=== PATIENT | male | born 1940 | race Caucasian/White ===

== ENCOUNTER 2016-12-03 08:21 | Inpatient (IN) | payer OTHER ==
--- NOTE | 2016-11-29 13:05 | GHP ---
[f rep st] HISTORY AND PHYSICAL DATE OF ADMISSION: 12/03/2016 HISTORY OF PRESENT ILLNESS: The patient is a 76-year-old male who returns to our office to discuss a left upper lobe mass recently demonstrated on CT scan done at [facility] in October 02. The patient denies any recent shortness of breath, pain or weight loss. He has a history of bas al cell carcinoma of the face, as well as prostate cancer. MEDICATION LIST: Aspirin, Effexor, Flomax, simvastatin. PAST MEDICAL HISTORY: Basal cell carcinoma, depression, history of colon polyps, hyperlipidemia, pro state cancer status post brachytherapy. PAST SURGICAL HISTORY: Cataract surgery, tonsillectomy, total hip arthroplasty. SOCIAL HISTORY: Past smoker. Retired. Lives with his . REVIEW OF SYSTEMS: Please see HPI for pertinent negatives. Patient had a 10-point negative review o f systems. PHYSICAL EXAM: GENERAL: The patient is a pleasant male in no apparent distress. HEAD AND NECK: No rmocephalic, atraumatic. No masses in the neck or elvin clavicular region. CHEST: CTA bilaterally. No masses. HEART: Regular rhythm and rate. ABDOMEN: Soft, nontender. EXTREMITIES: No lower ext remity edema. RADIOLOGY: CT scan: Please see HPI. LABORATORY STUDIES: Include recent normal liver function tests, grossly normal metabolic panel, othe r than a glucose of 111. Normal hematocrit. IMPRESSION: 76-year-old male with left lung mass concerning for malignancy. RECOMMENDATION: Left lung VATS procedure, as well as possible lobectomy was discussed with the patie nt in detail, including risks of great vessel injury, lung injury, prolonged use of chest tubes, infe ction, pneumonia. The patient elects to schedule surgery on 12/03/2016. /[id number]/MODL
[~2016-12-03 08:21] MED LIST: BUPIVACAINE/EPI 0.5% 30 ML SDV ONE; ceFAZolin 2 GM/DEXTROSE 100 ML IV ONE
[2016-12-03] MEDS ORDERED: CEFAZOLIN 2 GM/DEXTROSE/100 ML BAG IV ONE (08:43)
[2016-12-03] MEDS ORDERED: LR 1,000 ML IV ONE (09:14)
[2016-12-03] MEDS ORDERED: LIDOCAINE 1% 5 ML SDV ID PRN (09:14)
[2016-12-03] MEDS ORDERED: MIDAZOLAM 2 MG/2 ML VIAL ONE (09:34)
[2016-12-03] MEDS ORDERED: REMIFENTANIL HCL 1 MG VIAL ONE (09:46)
[2016-12-03] MEDS ORDERED: DEXAMETHASONE 4 MG/ML VIAL ONE ×2 (09:47)
[2016-12-03] MEDS ORDERED: PROPOFOL/EMULSION 500 MG/50 ML BOTTLE IV ONE (09:47)
[2016-12-03] MEDS ORDERED: fentaNYL 100 MCG/2 ML INJ ONE ×3 (09:47→12:57)
[2016-12-03] MEDS ORDERED: ONDANSETRON 4 MG/2 ML VIAL ONE (09:47)
[2016-12-03] MEDS ORDERED: LIDOCAINE 2% 100 MG/5 ML SYR IVP ONE (09:48)
[2016-12-03] MEDS ORDERED: LIDOCAINE 2% JELLY 5 ML TUBE ONE (09:52)
[2016-12-03] MEDS ORDERED: PHENYLEPHRINE HCL 100 MCG/ML SYR ONE ×3 (09:59→11:15)
[2016-12-03] MEDS ORDERED: epHEDrine SULFATE 10 MG/ML SYR ONE ×2 (10:25)
[2016-12-03] MEDS ORDERED: ATROPINE SULFATE 1 MG/ML VIAL ONE (10:29)
[2016-12-03] MEDS ORDERED: PROPOFOL 200 MG/20 ML VIAL ONE (11:56)
[2016-12-03] MEDS ORDERED: SUGAMMADEX SODIUM 200 MG/2 ML VIAL IVP ONE (12:15)
[2016-12-03] MEDS ORDERED: morphINE *ANESTHESIA ONLY* 10 MG/ML VIAL ONE (12:17)
--- NOTE | 2016-12-03 13:21 | DX ---
Chest Two Views December 03, 2016 Indication: Evaluate for incorrect needle count. Findings: On the first film, the patient was intubated and the lateral edge of the chest was cut off so a second film was obtained. The patient has been extubated. There are dual chest tubes in the left chest. Surgical luis alfredo are present over the chest wall. There is some platelike atelectasis in the right lung. There is no evidence of a curvilinear needle. Impression: No evidence of a retained surgical needle. Status post left upper lobectomy with dual ch est tubes and left surgical luis alfredo.
[2016-12-03] MEDS ORDERED: ONDANSETRON 4 MG/2 ML VIAL IVP PRN (14:02)
[2016-12-03] MEDS ORDERED: KETOROLAC 30 MG/1 ML SDV IVP ONE (14:02)
[2016-12-03] MEDS: D5W 1/2 NS W/ 20 KCl/L 1,000 ML IV SCH (14:26)
--- NOTE | 2016-12-03 15:47 | GCON ---
[f rep st] CONSULTATION REASON FOR ADMISSION: Status post resection of a left upper lobe mass. HISTORY OF PRESENT ILLNESS: The patient is a 76-year-old white male with a past medical history incl uding prostate cancer, with history of brachytherapy, hyperlipidemia, depression and basal cell carci noma. He was seen postoperatively after receiving a VATS resection of a left upper lobe mass presuma emiliano for cancer. The patient is immediately postoperative. He states the pain is tolerable, but seem s somewhat restless. He denies any shortness of breath. There is no cough or production of sputum. PAST MEDICAL HISTORY: Significant for hyperlipidemia, depression, skin cancer, prostate cancer. PAST SURGICAL HISTORY: Had brachytherapy, cataract surgery, tonsillectomy, a hip replacement. ALLERGIES: No known allergies to medications. SOCIAL HISTORY: A 60+ pack-year smoker. No significant alcohol use. He is , has good family support. PHYSICAL EXAM: VITAL SIGNS: Blood pressure is 106/52, pulse is 93, respirations are 21, temperature 36.6, oxygen saturation 94% on 3 L. GENERAL: The patient is a 76-year-old white male who is in mil d pain HEENT: Eyes ANA PAULA, EOMI. Throat shows no erythema or tonsillar hypertrophy. NECK: Supple. There is no cervical adenopathy. HEART: Regular rate and rhythm with a 2/6 systolic murmur left rosalba rnal border without radiation. LUNGS: Diminished breath sounds. He has crackles on the left. ABDO MEN: Soft, nontender. Bowel sounds are present in all 4 quadrants. There is no clubbing, cyanosis, or edema. LABORATORY DATA: Laboratories are currently pending. Chest x-ray shows status post left upper lobectomy with 2 chest tubes. IMPRESSION: 1. Lung mass. 2. Status post VATS resection. 3. Tobacco abuse. 4. History of hypertension. 5. History of prostate cancer. 6. Pain, moderately controlled. RECOMMENDATIONS: 1. Continue adequate pain control. 2. DVT and PE prophylaxis. 3. Stress ulcer prophylaxis. 4. Early ambulation. 5. Follow chest tube output closely. /[id number]/MODL
[2016-12-03] MEDS: HYDROmorphONE/DILAUDID 1 MG/ML SYR IVP PRN ×2 (16:29→21:28)
--- NOTE | 2016-12-03 17:04 | POSTOPPROG ---
Post Op Note Date of Operation: 12/03/16 Surgeon: Frederick Bean Rim Roller Setter: keegan Anesthesiologist: stephanie Anesthesia: GET(General Endotracheal) Pre-op Diagnosis: jocelin mass Post-op Diagnosis: bronchoalveolar ca Indication: persistent lung mass in smoker Procedure: vats jocelin wedge bx/ thoracotomy with faheem lobectomy with hilar lymphadenectomy Findings: <3 cm peripheral tumor JOCELIN/ benign appearing nodes Inf/Abcess present in the surg proc area at time of surgery?: No Depth: Organ Space EBL: 50-100 Complications: 0 Drains: Constavac Specimen(s): JOCELIN and lymph nodes
[2016-12-03] MEDS: KETOROLAC 15 MG/1 ML SDV IVP SCH ×2 (18:03→23:43)
--- NOTE | 2016-12-03 19:36 | SOAPPROG ---
SOAP Progress Note Assessment/Plan: Assessment: VS STABLE/ NO AIR LEAK/ MINIMAL DRAINAGE/ PAIN CONTROL OK CXR WELL-EXPANDED Plan: CXR IN AM 12/03/16 19:35 Objective: Vital Signs Temp Pulse Resp BP Pulse Ox 36.6 C 93 16 130/70 H 96 12/03/16 14:47 12/03/16 18:00 12/03/16 18:00 12/03/16 18:00 12/03/16 18:00 12/02/16 12/03/16 12/04/16 05:59 05:59 05:59 Intake Total 3175 Output Total 750 Balance 2425 ICD10 Worksheet Patient Problems: Problems Problem Status Diagnosed Hip arthritis Acute
[2016-12-04] MEDS: HYDROmorphONE/DILAUDID 1 MG/ML SYR IVP PRN ×2 (04:28→21:32)
[2016-12-04 04:40] LABS: % IMMATURE GRANULYOCYTES 0.5 % (0.0-1.1); ABSOLUTE IMMATURE GRANULOCYTES 0.07 10^3/uL (0.00-0.10); ADD DIFF? NO; ADD MORPH? NO; ADD SCAN? NO; ATYPICAL LYMPHOCYTE FLAG 10 (0-99); FRAGMENT RBC FLAG 0 (0-99); HEMATOCRIT 39.6 % (40.0-51.0); LEFT SHIFT FLG 0 (0-99); LIPEMIA HEMOLYSIS FLAG 90 (0-99); MEAN CELL HEMOGLOBIN 33.7 pg (27.9-34.1); MEAN CELL HEMOGLOBIN CONCENTR. 35.4 g/dL (32.4-36.7); MEAN CELL VOLUME 95.2 fL (81.5-99.8); MEAN PLATELET VOLUME 9.3 fL (8.7-11.7); PLATELET CLUMPS FLAG 0 (0-99); PLATELET COUNT 211 10^3/uL (150-400); RED BLOOD CELL COUNT 4.16 10^6/uL (4.40-6.38); RED CELL DISTRIBUTION WIDTH 13.3 % (11.5-15.2)
[2016-12-04 05:11] LABS: ANION GAP 6 mEq/L (8-16); CALCIUM 8.2 mg/dL (8.5-10.4); CARBON DIOXIDE 29 mEq/l (22-31); CHLORIDE 100 mEq/L (97-110); CREATININE 0.7 mg/dL (0.7-1.3); GLOMERULAR FILTRATION RATE > 60; GLUCOSE 119 mg/dL (70-100); POTASSIUM 4.7 mEq/L (3.5-5.2); SODIUM 135 mEq/L (134-144)
[2016-12-04] MEDS: KETOROLAC 15 MG/1 ML SDV IVP SCH ×4 (05:29→23:33)
--- NOTE | 2016-12-04 08:42 | DX ---
Portable AP Semiupright Chest December 04, 2016 6:16 a.m. Clinical History: 76-year-old male inpatient in the ICU for follow up after a left upper lobectomy. Comparison Study: Chest, dated December 03, 2016, at 12:35 p.m. Findings: There are two left-sided chest tubes present, and skin luis alfredo are seen peripherolaterally, consistent with the patient's recent thoracotomy and left upper lobectomy. There is some slight trac heal shift to the left. Telemetry monitoring lead lines are present. The cardiac silhouette is at the upper limits of normal. The right hemithorax is relatively clear. There is minor eventration of the right hemidiaphragm. Impression: Postoperative changes following a left thoracotomy and a left upper lobectomy.
--- NOTE | 2016-12-04 09:25 | PDINTPN ---
Pipe Stem Sawyer Progress Note Assessment/Plan: Assessment: * Lung mass * S/P VATS resection * Tobacco abuse * Pain-poorly controlled * H/O prostate cancer Plan: Await path OOB PT/OT Ambulation Likely okay for floor Subjective: Awake and alert. C/O pain Objective: Vital Signs Temp Pulse Resp BP Pulse Ox 36.8 C 73 18 119/78 100 12/04/16 08:00 12/04/16 08:00 12/04/16 08:00 12/04/16 08:00 12/04/16 08:00 Laboratory Results 12/04/16 04:26 12/04/16 04:26 12/03/16 12/04/16 12/05/16 05:59 05:59 05:59 Intake Total 4375 Output Total 1880 Balance 2495 Physical Exam - Physical Exam General Appearance: alert, mild distress EENT: PERRL/EOMI, normal ENT inspection Neck: non-tender, full range of motion, supple Respiratory: crackles (left), prolonged expiration, No wheezing Cardiac/Chest: normal peripheral pulses, regular rate, rhythm Abdomen: normal bowel sounds, non-tender, soft Male Genitalia: deferred Rectal: deferred Skin: normal color, warm/dry Extremities: normal range of motion, non-tender, normal inspection, normal capillary refill ICD10 Worksheet Patient Problems: Problems Problem Status Diagnosed Hip arthritis Acute
--- NOTE | 2016-12-04 09:29 | SOAPPROG ---
SOAP Progress Note Assessment/Plan: Assessment: VS STABLE/ NO AIR LEAK/ MINIMAL DRAINAGE/ PAIN CONTROL OK CXR WELL-EXPANDED Plan: CXR IN AM 12/03/16 19:35 12/04/16 09:27 SP LULOBECTOMY/ AFEBRILE/ COMFORTABLE/ CXR WELL EXPANDED/ HCT 39/ MODERATE CT DRAINAGE, NO AIR LEAK NO PROBLEMS/ PATH PENDING/ PLAN MOBILIZE Objective: Vital Signs Temp Pulse Resp BP Pulse Ox 36.8 C 73 18 119/78 100 12/04/16 08:00 12/04/16 08:00 12/04/16 08:00 12/04/16 08:00 12/04/16 08:00 Laboratory Results 12/04/16 04:26 12/04/16 04:26 12/03/16 12/04/16 12/05/16 05:59 05:59 05:59 Intake Total 4375 Output Total 1880 Balance 2495 ICD10 Worksheet Patient Problems: Problems Problem Status Diagnosed Hip arthritis Acute
[2016-12-04] MEDS: BUPIVACAINE 0.5% 10 ML SDV CT SCH ×5 (09:56→23:34)
[2016-12-04] MEDS ORDERED: BUPIVACAINE 0.25% 10 ML SDV IPL SCH (10:00)
[2016-12-04] MEDS: OMEGA-3 FATTY ACIDS 1,000 MG CAP PO SCH (11:56)
[2016-12-04] MEDS: MULTIVITAMINS 1 EACH TAB PO SCH (11:57)
[2016-12-04] MEDS: TAMSULOSIN HCL 0.4 MG CAP PO SCH (11:57)
--- NOTE | 2016-12-04 16:26 | DX ---
AP portable chest - December 04, 2016, at 1606 hours Indication: Follow up chest tubes and air leak. Comparison: December 04 2016 at 0616 hours. Findings There is a small amount of subcutaneous emphysema. There is no obvious pneumothorax. Dual ch est tubes are again present on the left with overlying surgical luis alfredo, consistent with recent left upper lobectomy. Elevation of the hemidiaphragm is unchanged. Impression: Small amount of left subcutaneous emphysema present, but no large pneumothorax. Dual ches t tubes are unchanged in position.
[2016-12-04] MEDS ORDERED: ALBUTEROL 3 ML DEYVIAL IH PRN (17:13)
[2016-12-04] MEDS: VENLAFAXINE XR 75 MG CAP PO SCH (17:16)
[2016-12-04] MEDS: ATORVASTATIN CALCIUM 20 MG TAB PO SCH (17:16)
[2016-12-04] MEDS: D5W 1/2 NS W/ 20 KCl/L 1,000 ML IV SCH (17:28)
[2016-12-04] MEDS ORDERED: NON-FORMULARY NEW DRUG (Simvastatin [Zocor] 40 MG) PO SCH (18:00)
[2016-12-04] MEDS ORDERED: TAMSULOSIN HCL 0.4 MG CAP PO SCH (18:00)
[2016-12-04] MEDS ORDERED: TAMSULOSIN HCL 0.4 MG CAP PO ONE (18:00)
[2016-12-04] MEDS: HYDROCODONE/APAP 5/325 TAB PO PRN (20:17)
[2016-12-04] MEDS: IPRATROPIUM/ALBUTEROL 3 ML DEYVIAL IH SCH (20:33)
[2016-12-05] MEDS: HYDROmorphONE/DILAUDID 1 MG/ML SYR IVP PRN (03:19)
[2016-12-05] MEDS: BUPIVACAINE 0.5% 10 ML SDV CT SCH ×5 (03:19→22:23)
[2016-12-05] MEDS: IPRATROPIUM/ALBUTEROL 3 ML DEYVIAL IH SCH ×5 (05:25→22:30)
[2016-12-05] MEDS: KETOROLAC 15 MG/1 ML SDV IVP SCH ×3 (05:25→18:17)
[2016-12-05] MEDS: D5W 1/2 NS W/ 20 KCl/L 1,000 ML IV SCH (07:48)
--- NOTE | 2016-12-05 08:19 | DX ---
Portable chest x-ray 0604 hours. History: Followup left upper lobectomy. Findings: Comparison to December 04, 2016. There are 2 left-sided chest tubes in stable position with volume loss left hemithorax related to lef t upper lobectomy. Mild amount of gas is seen in the soft tissues overlying the left hemithorax. Ther e is shift of the mediastinum toward the left. There is no evidence of pneumothorax. There is no new consolidation or effusion on either side. Osseous structures are unchanged. Impression: 1. Left-sided chest tubes in stable position S/P left upper lobectomy with volume loss left hemithora x. 2. No new consolidation.
--- NOTE | 2016-12-05 09:27 | PDINTPN ---
Manager Of Exhibitions And Collections Progress Note Assessment/Plan: Assessment: * Lung Cancer-JANEE * S/P VATS resection * Tobacco abuse * Pain-controlled * H/O prostate cancer Plan: Await path OOB PT/OT Ambulation Subjective: Pain better. Good appetite Objective: Vital Signs Temp Pulse Resp BP Pulse Ox 36.9 C 79 12 117/69 99 12/05/16 04:00 12/05/16 05:31 12/05/16 05:31 12/05/16 05:31 12/05/16 05:31 Laboratory Results 12/04/16 04:26 12/04/16 04:26 12/04/16 12/05/16 12/06/16 05:59 05:59 05:59 Intake Total 4375 2888 Output Total 1880 1560 Balance 2495 1328 Physical Exam - Physical Exam General Appearance: WD/WN, alert, no apparent distress EENT: PERRL/EOMI, normal ENT inspection Neck: non-tender, full range of motion, supple, normal inspection Respiratory: crackles (few left), No respiratory distress, No stridor, No wheezing Cardiac/Chest: normal peripheral pulses, regular rate, rhythm, systolic murmur Abdomen: normal bowel sounds, non-tender, soft Male Genitalia: deferred Rectal: deferred Skin: normal color, warm/dry Extremities: normal range of motion, non-tender, normal inspection, normal capillary refill Neuro/Psych: alert, normal mood/affect, oriented x 3 ICD10 Worksheet Patient Problems: Problems Problem Status Diagnosed Hip arthritis Acute
[2016-12-05] MEDS: OMEGA-3 FATTY ACIDS 1,000 MG CAP PO SCH (09:36)
[2016-12-05] MEDS: MULTIVITAMINS 1 EACH TAB PO SCH (09:36)
[2016-12-05] MEDS: HYDROCODONE/APAP 5/325 TAB PO PRN ×2 (13:44→22:23)
--- NOTE | 2016-12-05 15:10 | SOAPPROG ---
SOAP Progress Note Assessment/Plan: Assessment: VS STABLE/ NO AIR LEAK/ MINIMAL DRAINAGE/ PAIN CONTROL OK CXR WELL-EXPANDED Plan: CXR IN AM 12/03/16 19:35 12/04/16 09:27 SP LULOBECTOMY/ AFEBRILE/ COMFORTABLE/ CXR WELL EXPANDED/ HCT 39/ MODERATE CT DRAINAGE, NO AIR LEAK NO PROBLEMS/ PATH PENDING/ PLAN MOBILIZE 12/05/16 15:09 WOUND OK/ PAIN CONTROL BETTER/ AFEBRILE/ NO AIRLEAK/ DECREASED TUBE OUTPUT/ CXR WELL EXPANDED/ PATH PENDING Objective: Vital Signs Temp Pulse Resp BP Pulse Ox 37 C 81 20 123/67 H 94 12/05/16 12:00 12/05/16 14:00 12/05/16 14:00 12/05/16 12:00 12/05/16 14:00 Laboratory Results 12/04/16 04:26 12/04/16 04:26 12/04/16 12/05/16 12/06/16 05:59 05:59 05:59 Intake Total 3485 6368 Output Total 1880 1560 Balance 2495 1328 ICD10 Worksheet Patient Problems: Problems Problem Status Diagnosed Hip arthritis Acute
[2016-12-05] MEDS: ATORVASTATIN CALCIUM 20 MG TAB PO SCH (18:16)
[2016-12-05] MEDS: TAMSULOSIN HCL 0.4 MG CAP PO SCH (18:16)
[2016-12-05] MEDS: VENLAFAXINE XR 75 MG CAP PO SCH (18:17)
[2016-12-06] MEDS: KETOROLAC 15 MG/1 ML SDV IVP SCH ×4 (00:25→18:24)
[2016-12-06] MEDS: BUPIVACAINE 0.5% 10 ML SDV CT SCH ×6 (00:26→21:35)
[2016-12-06] MEDS: HYDROCODONE/APAP 5/325 TAB PO PRN ×3 (06:16→21:43)
[2016-12-06] MEDS: IPRATROPIUM/ALBUTEROL 3 ML DEYVIAL IH SCH ×4 (06:36→20:57)
--- NOTE | 2016-12-06 07:22 | DX ---
Portable Chest, 6:27 a.m. Clinical Indications: Post left upper lobectomy Comparison: yesterday and December 04 Findings: Progressive consolidation in the left lower lobe is consistent with atelectasis. A small l eft pleural effusion it is difficult to exclude. Two left chest tubes remain in place without pneumot horax. The right lung remains normally aerated but demonstrates mild vascular plethora, consistent wi th redistribution of blood flow from the left. The heart and mediastinum are shifted into the left he mithorax along with elevation of the left hemidiaphragm, consistent with postoperative volume loss. Impression: Progressive left lower lobe atelectasis.
[2016-12-06] MEDS: OMEGA-3 FATTY ACIDS 1,000 MG CAP PO SCH (08:15)
[2016-12-06] MEDS: MULTIVITAMINS 1 EACH TAB PO SCH (08:15)
--- NOTE | 2016-12-06 09:20 | PDINTPN ---
Mmi Teacher Progress Note Assessment/Plan: Assessment: * Lung Cancer-JANEE * S/P VATS resection * Tobacco abuse * Pain-improved * H/O prostate cancer Plan: OOB PT/OT Ambulation Likely okay for medsurg Subjective: Up in chair. Slept better last pm Objective: Vital Signs Temp Pulse Resp BP Pulse Ox 36.4 C 75 16 134/71 H 95 12/06/16 07:34 12/06/16 07:34 12/06/16 07:34 12/06/16 07:34 12/06/16 07:34 Laboratory Results 12/04/16 04:26 12/04/16 04:26 12/05/16 12/06/16 12/07/16 05:59 05:59 05:59 Intake Total 2888 1579 Output Total 1560 1050 Balance 1328 529 Physical Exam - Physical Exam General Appearance: alert, no apparent distress EENT: PERRL/EOMI, normal ENT inspection, pharynx normal Neck: non-tender, full range of motion, supple, normal inspection Respiratory: crackles, No respiratory distress, No stridor, No wheezing Cardiac/Chest: normal peripheral pulses, regular rate, rhythm, systolic murmur Peripheral Pulses: 2+: carotid (R), carotid (L), femoral (R), femoral (L), dorsalis-pedis (R), dorsalis-pedis (L) Abdomen: normal bowel sounds, non-tender, soft Male Genitalia: deferred Rectal: deferred Skin: normal color, warm/dry Extremities: normal range of motion, non-tender, normal inspection, normal capillary refill Neuro/Psych: no motor/sensory deficits, alert, normal mood/affect, oriented x 3 ICD10 Worksheet Patient Problems: Problems Problem Status Diagnosed Hip arthritis Acute
[2016-12-06] MEDS ORDERED: BISACODYL 10 MG SUPP PR PRN (12:48)
[2016-12-06] MEDS ORDERED: MAGNESIUM HYDROXIDE 30 ML UDCUP PO PRN (12:48)
[2016-12-06] MEDS ORDERED: LACTULOSE 20 GM/30 ML UDCUP PO PRN (12:48)
[2016-12-06] MEDS: POLYETHYLENE GLYCOL 3350 17 GM PKT PO PRN (15:39)
[2016-12-06] MEDS ORDERED: FUROSEMIDE 20 MG/2 ML VIAL IV ONE (17:00)
--- NOTE | 2016-12-06 17:49 | DX ---
Portable AP Upright Chest December 06, 2016, 4:59 p.m. Clinical History: 76-year-old male with worsening lung sounds and prior left thoracotomy. Comparison Study: Chest, dated December 06, 2016, at 6:27 a.m. Findings: There is stable positioning of the two left-sided chest tubes. There is volume loss on the left with tracheal shift to the left and elevation of the left hemidiaphragm. There has been interval improvement in the degree of left retrocardiac consolidation, and the patient has taken a deeper ins piratory effort. There is a small amount of subcutaneous emphysema on the left side, with no apprecia ble residual pneumothorax. Skin luis alfredo are seen peripheral laterally from the patient's recent thora cotomy. The right hemithorax is clear. Impression: Postoperative changes following a left thoracotomy and left upper lobectomy with stable p ositioning of the chest tubes and improved inspiratory effort with some clearing of the left retrocar diac consolidation, compared to 6:27 a.m.
[2016-12-06] MEDS: TAMSULOSIN HCL 0.4 MG CAP PO SCH (18:24)
[2016-12-06] MEDS: ATORVASTATIN CALCIUM 20 MG TAB PO SCH (18:24)
[2016-12-06] MEDS: VENLAFAXINE XR 75 MG CAP PO SCH (18:24)
[2016-12-06] MEDS: SENNOSIDES/DOCUSATE SODIUM TAB PO SCH (21:35)
[2016-12-07] MEDS: KETOROLAC 15 MG/1 ML SDV IVP SCH ×4 (00:26→18:41)
[2016-12-07] MEDS: BUPIVACAINE 0.5% 10 ML SDV CT SCH ×6 (00:58→21:05)
[2016-12-07] MEDS: IPRATROPIUM/ALBUTEROL 3 ML DEYVIAL IH SCH ×4 (05:18→20:29)
[2016-12-07] MEDS: SENNOSIDES/DOCUSATE SODIUM TAB PO SCH ×2 (08:19→21:05)
[2016-12-07] MEDS: OMEGA-3 FATTY ACIDS 1,000 MG CAP PO SCH (08:19)
[2016-12-07] MEDS: MULTIVITAMINS 1 EACH TAB PO SCH (08:20)
[2016-12-07] MEDS: HYDROCODONE/APAP 5/325 TAB PO PRN ×3 (08:20→16:40)
[2016-12-07] MEDS: POLYETHYLENE GLYCOL 3350 17 GM PKT PO PRN (08:40)
--- NOTE | 2016-12-07 08:57 | SOAPPROG ---
SOAP Progress Note Assessment/Plan: Assessment: 76yo male s/p left upper lobectomy for adenocarcinoma feeling better today, less SOB PE awake alert Chest Left chest tubes, posterior tube almost completely out, bandages dry, Rhonchi B/L Plan: removed posterior chest tube continue marcaine catheter remaining chest tube placed back to suction 12/07/16 08:55 Objective: Vital Signs Temp Pulse Resp BP Pulse Ox 36.4 C 79 18 128/81 H 88 L 12/07/16 08:00 12/07/16 08:00 12/07/16 08:00 12/07/16 08:00 12/07/16 08:00 Laboratory Results 12/04/16 04:26 12/04/16 04:26 12/06/16 12/07/16 12/08/16 05:59 05:59 05:59 Intake Total 1579 Output Total 1050 1220 Balance 529 -1220 ICD10 Worksheet Patient Problems: Problems Problem Status Diagnosed Hip arthritis Acute
[2016-12-07] MEDS: VENLAFAXINE XR 75 MG CAP PO SCH (18:40)
[2016-12-07] MEDS: ATORVASTATIN CALCIUM 20 MG TAB PO SCH (18:40)
[2016-12-07] MEDS: TAMSULOSIN HCL 0.4 MG CAP PO SCH (18:40)
[2016-12-08] MEDS: KETOROLAC 15 MG/1 ML SDV IVP SCH ×3 (00:24→12:09)
[2016-12-08] MEDS: BUPIVACAINE 0.5% 10 ML SDV CT SCH ×6 (00:24→20:29)
[2016-12-08] MEDS: HYDROCODONE/APAP 5/325 TAB PO PRN ×4 (03:32→16:30)
[2016-12-08] MEDS: IPRATROPIUM/ALBUTEROL 3 ML DEYVIAL IH SCH ×4 (05:42→20:22)
[2016-12-08] MEDS: MULTIVITAMINS 1 EACH TAB PO SCH (08:21)
[2016-12-08] MEDS: OMEGA-3 FATTY ACIDS 1,000 MG CAP PO SCH (08:21)
[2016-12-08] MEDS: SENNOSIDES/DOCUSATE SODIUM TAB PO SCH ×2 (08:21→20:28)
[2016-12-08] MEDS: POLYETHYLENE GLYCOL 3350 17 GM PKT PO PRN (08:53)
--- NOTE | 2016-12-08 09:25 | DX ---
Portable chest x-ray 0907 hours. History: Followup left lobectomy. Findings: Comparison to December 06, 2016. Single left-sided chest tube remains in place. There is no pneumothorax. There is some volume loss le ft hemithorax with mild shift of the mediastinum to the left and elevation left hemidiaphragm. There is some gas in the soft tissues over the left hemithorax slightly increased since the prior study. Th ere is some increased haziness at the left base the could represent increasing left effusion and/or a telectasis. The right lung remains clear. Fracture is noted posterior lateral left 6th rib. Impression: 1. Single left-sided chest tube remains in place. 2. Slight increase in subcutaneous emphysema over the left hemithorax. 3. Mild increased haziness at the left lung base that could represent combination of developing effus ion and/or atelectasis. 4. Nondisplaced fracture posterior lateral left 6th rib.
--- NOTE | 2016-12-08 09:32 | SOAPPROG ---
SOAP Progress Note Assessment/Plan: Assessment: 76yo male s/p left upper lobectomy for adenocarcinoma feeling better today, less SOB PE awake alert Chest Left chest tubes, posterior tube almost completely out, bandages dry, Rhonchi B/L Plan: removed posterior chest tube continue marcaine catheter remaining chest tube placed back to suction 12/07/16 08:55 12/08/16 09:30 No SOB, wants to go home. Still has left sided chest tube on suction. PE awake alert comfortable Mild ecchymosis left posterior chest, one chest tube in place, marcaine catheter in place CXR slight increase in LLL, ?effusion, no PTX Plan seen with Dr Kyle will take off suction given no PTX on xray today. Objective: Vital Signs Temp Pulse Resp BP Pulse Ox 36.7 C 76 16 113/76 95 12/08/16 08:00 12/08/16 08:00 12/08/16 08:00 12/08/16 08:00 12/08/16 08:00 Laboratory Results 12/04/16 04:26 12/04/16 04:26 12/07/16 12/08/16 12/09/16 05:59 05:59 05:59 Intake Total 500 Output Total 1220 1200 Balance -1220 -700 ICD10 Worksheet Patient Problems: Problems Problem Status Diagnosed Hip arthritis Acute
[2016-12-08] MEDS: VENLAFAXINE XR 75 MG CAP PO SCH (17:46)
[2016-12-08] MEDS: ATORVASTATIN CALCIUM 20 MG TAB PO SCH (17:46)
[2016-12-08] MEDS: TAMSULOSIN HCL 0.4 MG CAP PO SCH (17:46)
[2016-12-09] MEDS: BUPIVACAINE 0.5% 10 ML SDV CT SCH ×5 (00:07→17:17)
[2016-12-09] MEDS: IPRATROPIUM/ALBUTEROL 3 ML DEYVIAL IH SCH ×4 (06:26→22:03)
[2016-12-09] MEDS: HYDROCODONE/APAP 5/325 TAB PO PRN ×3 (06:47→20:20)
[2016-12-09] MEDS: OMEGA-3 FATTY ACIDS 1,000 MG CAP PO SCH (08:30)
[2016-12-09] MEDS: MULTIVITAMINS 1 EACH TAB PO SCH (08:30)
[2016-12-09] MEDS: SENNOSIDES/DOCUSATE SODIUM TAB PO SCH ×2 (08:30→20:19)
--- NOTE | 2016-12-09 08:57 | DX ---
Portable Chest December 09, 2016 0625 hours History: Follow up chest tube, off suction. Comparison: Portable chest December 08, 2016. Findings: A tiny left apical pneumothorax is new/increased since the comparison. A left chest tube is in good position. There is improved aeration of the left lung base with minimal residual blunting of the left costophrenic angle. The heart size is normal. Multiple left rib fractures are again noted. Pneumomediastinum and subcutaneous emphysema over the left chest are again noted. Impression: 1. Tiny left apical pneumothorax, new/increased since the previous study. 2. Improved aeration of the left lung base. Findings discussed with Jonh, the patient's nurse, today at 0850 hours.
--- NOTE | 2016-12-09 09:23 | SOAPPROG ---
SOAP Progress Note Assessment/Plan: Assessment: 76yo male s/p left upper lobectomy for adenocarcinoma feeling better today, less SOB PE awake alert Chest Left chest tubes, posterior tube almost completely out, bandages dry, Rhonchi B/L Plan: removed posterior chest tube continue marcaine catheter remaining chest tube placed back to suction 12/07/16 08:55 12/08/16 09:30 No SOB, wants to go home. Still has left sided chest tube on suction. PE awake alert comfortable Mild ecchymosis left posterior chest, one chest tube in place, marcaine catheter in place CXR slight increase in LLL, ?effusion, no PTX Plan seen with Dr Kyle will take off suction given no PTX on xray today. 12/09/16 09:[address] Bean doing well, no SOB, pain well controlled PE awake alert Chest Left chest tube in place, bandages dry Plan remove marcaine catheter will f/u CXR Objective: Vital Signs Temp Pulse Resp BP Pulse Ox 37 C 81 18 120/68 90 L 12/09/16 07:53 12/09/16 07:53 12/09/16 07:53 12/09/16 07:53 12/09/16 07:53 Laboratory Results 12/04/16 04:26 12/04/16 04:26 12/08/16 12/09/16 12/10/16 05:59 05:59 05:59 Intake Total 500 Output Total 1200 760 200 Balance -700 -760 -200 ICD10 Worksheet Patient Problems: Problems Problem Status Diagnosed Hip arthritis Acute
[2016-12-09] MEDS: TAMSULOSIN HCL 0.4 MG CAP PO SCH (17:38)
[2016-12-09] MEDS: ATORVASTATIN CALCIUM 20 MG TAB PO SCH (17:38)
[2016-12-09] MEDS: VENLAFAXINE XR 75 MG CAP PO SCH (17:38)
--- NOTE | 2016-12-09 20:15 | SOAPPROG ---
SOAP Progress Note Assessment/Plan: Assessment: VS STABLE/ NO AIR LEAK/ MINIMAL DRAINAGE/ PAIN CONTROL OK CXR WELL-EXPANDED Plan: CXR IN AM 12/03/16 19:35 12/04/16 09:27 SP LULOBECTOMY/ AFEBRILE/ COMFORTABLE/ CXR WELL EXPANDED/ HCT 39/ MODERATE CT DRAINAGE, NO AIR LEAK NO PROBLEMS/ PATH PENDING/ PLAN MOBILIZE 12/05/16 15:09 WOUND OK/ PAIN CONTROL BETTER/ AFEBRILE/ NO AIRLEAK/ DECREASED TUBE OUTPUT/ CXR WELL EXPANDED/ PATH PENDING 12/09/16 20:14 comfortable/ afebrile/ wounds ok/ large tube output but no air leak/ path adenoca 1.5cm with neg nodes Objective: Vital Signs Temp Pulse Resp BP Pulse Ox 36.9 C 81 16 110/61 94 12/09/16 19:31 12/09/16 19:31 12/09/16 19:31 12/09/16 19:31 12/09/16 19:31 Laboratory Results 12/04/16 04:26 12/04/16 04:26 12/08/16 12/09/16 12/10/16 05:59 05:59 05:59 Intake Total 500 Output Total 1200 760 350 Balance -700 -760 -350 ICD10 Worksheet Patient Problems: Problems Problem Status Diagnosed Hip arthritis Acute
[2016-12-10] MEDS: HYDROCODONE/APAP 5/325 TAB PO PRN ×5 (04:50→22:13)
[2016-12-10] MEDS: IPRATROPIUM/ALBUTEROL 3 ML DEYVIAL IH SCH ×4 (06:10→22:35)
[2016-12-10] MEDS: SENNOSIDES/DOCUSATE SODIUM TAB PO SCH (08:10)
[2016-12-10] MEDS: OMEGA-3 FATTY ACIDS 1,000 MG CAP PO SCH (08:11)
[2016-12-10] MEDS: MULTIVITAMINS 1 EACH TAB PO SCH (08:13)
--- NOTE | 2016-12-10 15:22 | SOAPPROG ---
SOAP Progress Note Assessment/Plan: Assessment/Plan: 76 Y M s/p HO lobectomy for adenocarcinoma. POD#7. Doing well. No air leak. Pain controlled. Afebrile. Drainage too high for removal of chest tube. Continue to water seal. Will get new routine labs in am. 12/10/16 15:19 Subjective: Some pin point pain in anterior L chest (along rib s c incisions). No SOB. Has walked to bathroom but not much in hallway today. Getting bored. Would like to shower. Objective: Vital Signs Temp Pulse Resp BP Pulse Ox 36.9 C 78 14 112/71 92 12/10/16 12:00 12/10/16 12:32 12/10/16 12:32 12/10/16 12:00 12/10/16 12:32 Laboratory Results 12/04/16 04:26 12/04/16 04:26 12/09/16 12/10/16 12/11/16 05:59 05:59 05:59 Intake Total 500 Output Total 760 600 Balance -760 -100 gen: alert nad pulm: no airleak, drainage serous, no wob cor: rrr abd: soft wounds: well dressed, appropriately tender, mild flank ecchymosis ICD10 Worksheet Patient Problems: Problems Problem Status Diagnosed Hip arthritis Acute
[2016-12-10] MEDS: ATORVASTATIN CALCIUM 20 MG TAB PO SCH (18:30)
[2016-12-10] MEDS: TAMSULOSIN HCL 0.4 MG CAP PO SCH (18:31)
[2016-12-10] MEDS: VENLAFAXINE XR 75 MG CAP PO SCH (18:31)
[2016-12-11] MEDS: SENNOSIDES/DOCUSATE SODIUM TAB PO SCH ×3 (00:47→21:17)
[2016-12-11] MEDS: HYDROCODONE/APAP 5/325 TAB PO PRN ×5 (01:23→21:04)
[2016-12-11] MEDS: IPRATROPIUM/ALBUTEROL 3 ML DEYVIAL IH SCH ×4 (05:17→21:04)
[2016-12-11 05:33] LABS: HEMATOCRIT 42.9 % (40.0-51.0); HEMOGLOBIN 14.5 g/dL (13.7-17.5)
[2016-12-11 05:44] LABS: ANION GAP 5 mEq/L (8-16); CALCIUM 8.5 mg/dL (8.5-10.4); CARBON DIOXIDE 30 mEq/l (22-31); CHLORIDE 100 mEq/L (97-110); CREATININE 0.7 mg/dL (0.7-1.3); GLOMERULAR FILTRATION RATE > 60; GLUCOSE 95 mg/dL (70-100); POTASSIUM 4.8 mEq/L (3.5-5.2); SODIUM 135 mEq/L (134-144)
[2016-12-11] MEDS: OMEGA-3 FATTY ACIDS 1,000 MG CAP PO SCH (08:35)
[2016-12-11] MEDS: MULTIVITAMINS 1 EACH TAB PO SCH (08:35)
--- NOTE | 2016-12-11 09:31 | SOAPPROG ---
SOAP Progress Note Assessment/Plan: Assessment: 76yo male s/p left upper lobectomy for adenocarcinoma, negative nodes PE awake alert comfortable Chest Left chest tube in place, stapled incisions clean/dry, no erythema, CTA B/ L Ht RRR Plan removed chest tube, pt tolerated well, CXR pending explained to pt that may need smaller tube put in if fluid builds up or pneumothorax develops. do not get dressing wet or change dressing. Ok to shower if area can be covered and kept dry. 12/11/16 09:27 Objective: Vital Signs Temp Pulse Resp BP Pulse Ox 36.6 C 73 18 101/64 91 L 12/11/16 08:18 12/11/16 08:18 12/11/16 08:18 12/11/16 08:18 12/11/16 08:18 Laboratory Results 12/11/16 05:04 12/11/16 05:04 12/10/16 12/11/16 12/12/16 05:59 05:59 05:59 Intake Total 500 200 Output Total 600 325 Balance -100 -125 ICD10 Worksheet Patient Problems: Problems Problem Status Diagnosed Hip arthritis Acute
--- NOTE | 2016-12-11 13:14 | DX ---
Portable chest x-ray 1052 hours. History: Left upper lobectomy for adenocarcinoma. Followup chest tube removal. Findings: Comparison to December 09, 2016. The left-sided chest tube has been removed. There is no residual pneumothorax identified. Subcutaneou s gas is seen over the left hemithorax extending to the left lower neck somewhat to the prior study. There is volume loss on the left as expected and some elevation of left hemidiaphragm and small left effusion. Fractures are suspected associated with the lateral left 5th and 6th ribs. The right lung r emains clear. Heart size and pulmonary vasculature are normal. Impression: 1. No evidence of pneumothorax on the left following left-sided chest tube removal. 2. Stable subcutaneous gas over the left hemithorax and into the left lower neck. 3. Stable fractures lateral left 5th and 6th ribs. 4. Volume loss left hemithorax as expected post left upper lobectomy.
[2016-12-11] MEDS: ATORVASTATIN CALCIUM 20 MG TAB PO SCH (17:50)
[2016-12-11] MEDS: VENLAFAXINE XR 75 MG CAP PO SCH (17:50)
[2016-12-11] MEDS: TAMSULOSIN HCL 0.4 MG CAP PO SCH (17:50)
[2016-12-12] MEDS: HYDROCODONE/APAP 5/325 TAB PO PRN ×2 (01:35→05:24)
[2016-12-12] MEDS: IPRATROPIUM/ALBUTEROL 3 ML DEYVIAL IH SCH ×2 (05:34→11:46)
--- NOTE | 2016-12-12 08:33 | DX ---
AP Upright Portable Chest December 12, 2016 Clinical Indication: Follow up left upper lobe resection. Findings: Subcutaneous emphysema is minimally larger compared to prior examination. There is a linea r pleural edge that likely represents a small developing pneumothorax at the apex. The patient has mohr d a left upper lobe resection. Heart size is normal. Surgical luis alfredo over the left chest persist. Th e right lung is clear. Impression: Mild increase in subcutaneous emphysema and small developing pneumothorax. Results relayed by Dr. Dickinson to Dr. Bean December 12, 2016, at 0830 hours.
[2016-12-12] MEDS: MULTIVITAMINS 1 EACH TAB PO SCH (08:46)
[2016-12-12] MEDS: OMEGA-3 FATTY ACIDS 1,000 MG CAP PO SCH (08:46)
[2016-12-12] MEDS: SENNOSIDES/DOCUSATE SODIUM TAB PO SCH (08:46)
--- NOTE | 2016-12-12 13:03 | SOAPPROG ---
SOAP Progress Note Assessment/Plan: Assessment: 76yo male s/p left upper lobectomy for adenocarcinoma, negative nodes all chest tube removed, no SOB, pain well controlled, may need home O2 but on 1L PE awake alert bandages dry and in place over chest tube defects, CTA B/L, stapled incision clean/dry Plan reviewed xray with Dr Bean, D/C home after O2 eval. 12/12/16 13:02 Objective: Vital Signs Temp Pulse Resp BP Pulse Ox 36.7 C 87 18 105/66 92 12/12/16 10:57 12/12/16 11:50 12/12/16 11:50 12/12/16 10:57 12/12/16 11:50 Laboratory Results 12/11/16 05:04 12/11/16 05:04 12/11/16 12/12/16 12/13/16 05:59 05:59 05:59 Intake Total 200 Output Total 325 Balance -125 ICD10 Worksheet Patient Problems: Problems Problem Status Diagnosed Hip arthritis Acute
[2016-12-12 15:08] VITALS: BP 121/68; PULSE 84; RESP 24; TEMP 98.6; O2SAT 95
--- NOTE | 2016-12-12 17:31 | DX ---
Portable Chest, Single View December 12, 2016 at 1620 hours Indication: Follow up pneumothorax. Recent left upper lobectomy. Comparison: Portable chest dated December 08, 2016. Findings: Minimally decreased subcutaneous emphysema. Skin luis alfredo, left moderate pleural effusion, a nd mild hyperinflation of the left lower lobe are unchanged in appearance. A partial interface at the left lung apex and along the left superior mediastinal contour suggests small superimposed pneumotho rax of the left apex (within normal limits for recent left upper lobectomy). The right lung remains w ell-aerated and clear. No edema or effusion on the right. Impression: Expected features of left upper lobectomy. Minimal decrease subcutaneous emphysema. Small left apical pneumothorax unchanged.
--- NOTE | 2016-12-14 01:56 | GDS ---
[f rep st] DISCHARGE SUMMARY REASON FOR ADMISSION: Surgery for lung cancer. OTHER PERTINENT DIAGNOSES: Hyperlipidemia, depression. HOSPITAL COURSE: The patient is a 76-year-old male who had a CT scan which demonstrated a left lung mass concerning for malignancy, and underwent surgery with Dr. Bean on 12/03/2016 which was a left V ATS procedure, left upper lobe wedge biopsy, thoracotomy with left upper lobectomy with hilar lymphad enectomy. Pathology from the surgery yielded adenocarcinoma with adequate margins and negative lymph nodes. The patient's hospital course was significant for placement of 2 chest tubes during the oper ative period which were eventually removed one at a time, and followup x-rays yielded a small unchang ed left pneumothorax. The patient had multiple x-rays which showed this to be stable and was dischar ged with instructions to follow up in our office in approximately 1 week for followup appointment wit h x-ray. Patient was discharged with [place] #15, although he did not take or need any pain medicine f or the last 72 hours he was in the hospital. The patient was discharged with instructions that it is okay for him after 48 hours from the last chest tube removal to remove bandages and shower. He does have luis alfredo that will be removed in the office as well, and him and his both understand these instructions. /[id number]/MODL
--- NOTE | 2016-12-16 16:30 | GOP ---
[f rep st] OPERATIVE REPORT DATE OF OPERATION: 12/03/2016 SURGEON: Frederick Bean MD [employer]HBOR[employer]OD CONSERVATION OFFICER: Tyler Capone M.D. ANESTHESIOLOGIST: Dr. Arevalo. PREOPERATIVE DIAGNOSIS: Right upper lobe mass. POSTOPERATIVE DIAGNOSIS: Bronchoalveolar carcinoma, pathology pending. PROCEDURE PERFORMED: 1. VATS left upper lobe wedge biopsy. 2. Thoracotomy with left upper lobectomy with HIDA lymphadenectomy. FINDINGS: The patient was found to have a 3 cm peripheral tumor in the left upper lobe. He had chelita gn appearing lymph nodes. Final path is pending. DESCRIPTION OF PROCEDURE: The patient was taken to the operating room where he received satisfactory general endotracheal anesthesia by Dr. Arevalo. He was placed in the right lateral decubitus position , prepped and draped in usual sterile fashion. A short incision was made in the 6th intercostal spac e in the mid axillary line. A trocar was introduced. Thoracoscope introduced. The lung was collaps ed with some CO2 insufflation and suctioned on the double-lumen endotracheal tube. However, the left upper lobe was fully explored, and no definite mass lesion could be identified. Two other trocars h ad been placed in the upper part of the chest under direct vision. A short mini thoracotomy incision was then made in the 4th intercostal space, and the chest was entered. The left upper lobe was palp ated, and what was thought was believed to be the lesion was identified. This was grasped with a tri angular lung clamp, and using the wedge excision, lesion was removed and sent to pathology for frozen section. This was returned as consistent with bronchoalveolar carcinoma. In the interim, the chest had been evaluated. There were no obvious signs of metastatic disease. Some hilar lymph nodes were dissected free and sent to Pathology. It was elected to proceed with a lobectomy. The incision was somewhat enlarged, and a rib training program developer was then used and the upper lobe was then mobilized. The nalini r fissure had been dissected free laparoscopically and the vessels were then ligated using an Endo-GI A stapler. This included on the anterior surface of the lung for the apical anterior segment with ca re to avoid blood flow to the lower lobe. The superior pulmonary vein was dissected free and divided with an Endo-DAVIS stapler as well, and then the lobe was isolated down to the bronchus, and bronchial arteries were hemoclipped and divided. The bronchus was cross-clamped, and the lung was inflated to assure no compromise to the left lower lobe. Once that was established, the bronchus was divided wi th a DAVIS stapler, and the specimen was removed and sent to Pathology. Hemostasis was assured. The w ound was tested under water. There was no evidence of any air leak. The wound was irrigated. It wa s infiltrated with 0.5% Marcaine. Two #28 chest tubes were brought in through some of the separate t rocar sites and secured to the skin with 2-0 silk sutures as well as a Marcaine infusion catheter was brought in through a separate site and secured to the skin with a silk suture. He tolerated the pro cedure well. The chest was closed using drill holes in the lower rib and #1 Vicryl pericostal suture s, a running 0 Vicryl suture for the muscular layers, 2-0 Vicryl for the subcu, and skin luis alfredo for the skin. He tolerated the procedure quite well. There were no complications. He was taken to the recovery room in good condition. /[id number]/MODL
== END 2016-12-12 19:40 | disposition home or self-care (01) | DRG 165 ==
LOC: F3N 08:21 → F2N 13:46 → F3E 12-06 22:36
PROVIDERS: ADMIT Surgery; ATTEND Surgery
PROC: 0BTG0ZZ Resection of Left Upper Lung Lobe, Open Approach (ICD-10-PCS; principal; 2016-12-03 10:30)
PROC: 07B70ZZ Excision of Thorax Lymphatic, Open Approach (ICD-10-PCS; principal; 2016-12-03 10:30)
PROC: 0BBG4ZX Excision of Left Upper Lung Lobe, Percutaneous Endoscopic Approach, Diagnostic (ICD-10-PCS; principal; 2016-12-03 10:30)
DX: C34.12 Malignant neoplasm of upper lobe, left bronchus or lung (principal); E78.5 Hyperlipidemia, unspecified; F32.9 Major depressive disorder, single episode, unspecified; C61 Malignant neoplasm of prostate; F17.200 Nicotine dependence, unspecified, uncomplicated; I10 Essential (primary) hypertension; Z96.649 Presence of unspecified artificial hip joint
CPT/HCPCS: 97116-GP; 97161-GP; 97166-GO; 97530-GO; 97535-GO; G8978-GP-CI; G8979-GP-CI; G8980-GP-CI; G8987-GO-CK; G8988-GO-CI; J0461; J0690; J1100; J1170; J1885; J2001; J2250; J2370; J2405; J2704; J3010

== ENCOUNTER → 2016-12-18 | Outpatient (CLI) | payer OTHER ==
--- NOTE | 2016-12-18 18:18 | DX ---
Chest, Two Views at 1600 hours History: Lung cancer, previous left thoracotomy, Z 80.1. Comparison: December 12, 2016 Findings: Cardiac silhouette is within normal range. No definite pneumothorax left chest wall subcuta neous emphysema appears less prominent. Displaced left sixth rib fracture. Pleural parenchymal opacit y in the left lower lobe appear similar. Right lung is clear. Surgical clips in the left hilum and le ft upper lobe region consistent with left upper lobectomy. Syndesmophytes in the mid and lower thorac ic spine consistent with diffuse idiopathic skeletal hyperostosis. Impression: 1. No definite left pneumothorax. 2. No change in left lower lobe postsurgical pleural-parenchymal opacity. 3. Displaced left sixth rib fracture.
== END ==
LOC: FIMAGING 15:58
PROVIDERS: ATTEND Surgery
DX: Z48.813 Encounter for surgical aftercare following surgery on the respiratory system (principal); C34.12 Malignant neoplasm of upper lobe, left bronchus or lung

== ENCOUNTER → 2017-03-28 | Outpatient (CLI) | payer OTHER | LOC: FIMAGING 16:10 | PROVIDERS: ATTEND Physician Assistant Surgical | DX: Z09 Encounter for follow-up examination after completed treatment for conditions other than malignant neoplasm (principal); Z90.2 Acquired absence of lung [part of]; J90 Pleural effusion, not elsewhere classified ==

== ENCOUNTER → 2018-11-03 | Outpatient (CLI) | payer OTHER | LOC: FIMAGING 11:44 | PROVIDERS: ATTEND Registered Nurse | DX: Z08 Encounter for follow-up examination after completed treatment for malignant neoplasm (principal); J90 Pleural effusion, not elsewhere classified; M25.78 Osteophyte, vertebrae; Z85.118 Personal history of other malignant neoplasm of bronchus and lung; Z90.2 Acquired absence of lung [part of] ==